=== PATIENT | female | born 1955 | race Caucasian/White ===

== ENCOUNTER 2020-06-30 11:42 | Outpatient (CLI) | payer MEDICARE, SELFPAY ==
--- NOTE | ~2020-06-30 | MM_ITS ---
EXAMINATION: MM screening [facility] BI w meche HISTORY: Screening mammogram, history of right breast cancer TECHNIQUE: Craniocaudal and mediolateral oblique 3-D tomosynthesis images were obtained and synthetic 2-D images were generated. CAD analysis was submitted and interpreted. COMPARISON: 06/11/2019, 06/06/2018, 05/17/2017, 09/14/2015 BREAST PARENCHYMAL COMPOSITION: There are scattered areas of fibroglandular density. FINDINGS: Stable lumpectomy changes are present in the central right breast. There is no evidence of suspicious mass, calcification, or architectural distortion to suggest malignancy in either breast. T here has been no suspicious interval change. IMPRESSION: 1. No mammographic evidence of malignancy. 2. Recommend routine screening mammography in one year. BI-RADS Category 2: Benign finding(s). Reviewed, dictated and finalized at location A.
== END 2020-06-30 11:43 | disposition home or self-care (01) ==
PROVIDERS: PCP Internal Medicine; Visit Provider Internal Medicine
DX: Z12.31 Encounter for screening mammogram for malignant neoplasm of breast (principal)
CPT/HCPCS: 77063; 77067

== ENCOUNTER 2021-05-31 11:56 | Outpatient (CLI) | payer MEDICARE, SELFPAY ==
--- NOTE | 2021-05-31 13:02 | ECG_ITS ---
Measurements Intervals [place] Rate: 63 P: -2 GA: 160 QRS: -24 QRSD: 90 T: 29 QT: 387 QTc: 397 Interpretive Statements SINUS RHYTHM WITH SINUS ARRHYTHMIA INCOMPLETE RIGHT BUNDLE BRANCH BLOCK LOW QRS VOLTAGE IN PRECORDIAL LEADS POOR R WAVE PROGRESSION, ANTERIOR LEADS BORDERLINE T WAVE ABNORMALITY- ANTERIOR LEADS BASELINE ARTIFACT- I, II, III, AVR, AVL, AVF BORDERLINE ECG Electronically Signed On 05-31-2021 13:15:40 CDT by Bryn Jameson D.O.
[2021-05-31 14:21] LABS: Basophils Percent Auto 0.4 % (0.2-1.2); Eosinophils Absolute Auto 0.1 K/mm3 (0-0.3); Eosinophils Percent Auto 2.8 % (0-4.4); Hematocrit 41.9 % (37.0-47.0); Hemoglobin 13.9 g/dL (12.0-15.0); Immature Granulocyte Absolute 0.01 K/mm3 (0.00-0.031); Immature Granulocyte Percent A 0.2 % (0-0.5); Lymphocytes Absolute Auto 1.03 K/mm3 (0.9-3.2); Lymphocytes Percent Auto 21.8 % (18.3-44.2); Mean Corpuscular HGB Conc 33.2 g/dl (32-36); Mean Corpuscular Hemoglobin 29.8 pg (26-34); Mean Corpuscular Volume 89.7 fl (80-100); Mean Platelet Volume 10.6 fl (7.4-10.4); Monocytes Absolute Auto 0.4 K/mm3 (0.1-0.6); Monocytes Percent Auto 8.1 % (2.6-8.5); Neutrophils Absolute Auto 3.2 K/mm3 (1.3-6.7); Neutrophils Percent Auto 66.7 % (45.5-73.1); Platelet Count Result 235 k/mm3 (150-375); Red Blood Count 4.67 M/mm3 (4.2-5.4); Red Cell Distribution Width 11.9 % (11.5-14.5); White Blood Count 4.7 K/mm3 (4.5-10.0)
[2021-05-31 14:29] LABS: Albumin Level 4.3 g/dL (3.5-5.1); Estimated Glomerular Filt Rate > 60; Glucose 83 mg/dL (65-110); Urine Cotinine NEGATIVE
[2021-05-31 14:32] LABS: Hemoglobin A1C 5.2 % (<5.7)
== END 2021-05-31 11:57 | disposition home or self-care (01) ==
PROVIDERS: PCP Internal Medicine; Visit Provider Orthopaedic Surgery
DX: M17.11 Unilateral primary osteoarthritis, right knee (principal); Z01.818 Encounter for other preprocedural examination; I45.10 Unspecified right bundle-branch block
CPT/HCPCS: 80307; 82040; 82565; 82947; 83036; 85025; 93005

== ENCOUNTER 2021-06-15 02:05 | Day surgery (SDC) | payer MEDICARE, SELFPAY ==
[2021-05-31 12:24] VITALS: BP 137/78; PULSE 72; RESP 16; TEMP 36.7; O2SAT 98; BMI 26.8
--- NOTE | 2021-06-13 13:15 | PM.IMHP ---
H&P: HPI History of Present Illness Date/Time: 06/13/21 13:15 the patient is a 65-year-old female who presents with right knee pain. This is due to primary osteoarthritis advanced in nature. By previous x-ray the patient is noted to have [id number] primary osteoarthritis with tricompartmental changes in the right knee. Patient can not stand or walk for long periods she has aching pain worse with activities and relieved by rest. She can not squat kneel go up and down stairs well has start-up pain rest pain and night pain. The patient reports mechanical symptoms with swelling as well. Despite conservative measures including cortisone therapy and anti-inflammatories symptoms continue. At this point the patient has discussed further treatment options in detail Dr. Logan she would now like to proceed with a right total knee arthroplasty. Chief Complaint: Right knee pain due to advanced primary osteoarthritis Review of Systems Review of Systems: All systems reviewed & are unremarkable except as noted in HPI and below PMFSH Family History Family History Father Family history of lung cancer Family history of heart disease in male family member before age 55 Mother Family history of lupus erythematosus Family history of heart disease in male family member before age 55 Other Diabetes mellitus Family history of cardiovascular disease Social History Social History Smoking status: Never smoker Alcohol intake: current Substance use: never Additional living arrangements comments: HUSB Spiritual care concerns: No Meds Home Medications and Allergies Home Medications Medication Instructions Recorded Confirmed Type cholecalciferol (vitamin D3) 25 mcg PO DAILY 05/31/21 05/31/21 History losartan 50 mg PO QAM 05/31/21 05/31/21 History paroxetine HCl 20 mg PO QAM 05/31/21 05/31/21 History pediatric multivitamin [Multiple 1 tablet PO DAILY 05/31/21 05/31/21 History Vitamins] Allergies Allergy/AdvReac Type Severity Reaction Status Date / Time Sulfa (Sulfonamide Allergy Severe RENAL, Verified 05/31/21 12:16 Antibiotics) HEART & RESP FAILURE, HIVES trimethoprim Allergy Severe RENAL,HEART Verified 05/31/21 12:16 & RESP FAILURE, HIVES Exam Narrative: The patient is noted be a well-developed well-nourished female no acute distress she is alert oriented x3. Normal mood and affect. She is noted be 5 ft 8 in tall 173 lb with a BMI of 26.1. Hearing and vision are intact. Respiratory is good no distress. Pulse regular rate rhythm. Abdomen benign. Extremities showed the patient's right knee to be painful with manipulation and range of motion. Patient has tenderness on the medial joint line somewhat laterally as well pain with extremes of motion right knee. Subpatellar crepitation is noted mild effusion swelling, hips move well with negative Stinchfield negative SILVIO. Strength is 5 5 neurovascular patient is intact patient has pain with extremes of motion somewhat limited motion as well in the right knee. patient walks an antalgic gait because right knee pain. Neurovascular patient is intact. Skin is intact. Central nervous system exam within normal limits. Assessment and Plan Additional Plan By x-ray and exam the patient is noted to have severe primary osteoarthritis right knee joint. The patient has discussed risks benefits limitations and alternatives to surgery in great detail Dr. Logan, the patient is now ready to proceed with a right total knee arthroplasty. The patient is scheduled to go surgery 06/15/20[facility] at [facility] [address]. Logan. The patient voiced understanding and agrees with the above plan.
[2021-06-15] VITALS (14 sets, daily range): BP systolic 114–182; BP diastolic 49–85; PULSE 64–94; RESP 12–20; TEMP 36.1–36.8; O2SAT 93–100
--- NOTE | ~2021-06-15 | XR_ITS ---
EXAMINATION: XR knee RT 2V DATE: 06/15/2021 11:40 INDICATION: Total right knee arthroplasty. Postop. TECHNIQUE: 2 views of right knee were obtained. COMPARISON: None. FINDINGS: There is a total right knee arthroplasty in near-anatomic alignment with patellar resurfaci ng. No fracture. There is gas in the knee joint and soft tissues, consistent with recent surgery. Ant erior skin kulwant are noted. IMPRESSION: 1. Total right knee arthroplasty in near-anatomic alignment. Reviewed, dictated and finalized at location A.
--- NOTE | 2021-06-15 07:22 | WPDHPUPDATE1 ---
History and Physical Update Update Date/Time: 06/15/21 07:22 History and Physical has been reviewed, including an updated exam of the patient. There are NO changes in the patient's condition. Risks, benefits, and alternatives have been discussed and questions answered. Patient agrees to proceed with procedure.
[2021-06-15] MEDS: ACETAMINOPHEN 500 MG TABLET 1000 MG PO (07:40)
[2021-06-15] MEDS: LACTATED RINGERS 1,000 ML 30 ML IV CONT ×2 (07:50→11:23)
[2021-06-15] MEDS: TRANEXAMIC ACID 1,000MG/ISO100 1,000 MG/100 ML BAG 200 MG IVPB (07:54)
--- NOTE | 2021-06-15 08:55 | WPDANESEPPF ---
Anes - Initial Pre Proc Eval Procedure: Operation Date: 06/15/21 09:30 Proposed Procedures p Right Total Knee Arthroplasty - Miguelangel Logan MD Date/Time: 06/15/21 08:55 Surgeon: Miguelangel Logan MD Pre Op Diagnosis: OA right knee Patient Data Age: 65 Gender: F Height: 1.73 m Weight: 78.4 kg Last Vital Signs Temp 36.2 C L 06/15/21 07:45 Pulse 79 06/15/21 07:45 Resp 16 06/15/21 07:45 BP 128/72 06/15/21 07:45 Pulse Ox 97 06/15/21 07:45 Allergies Allergy/AdvReac Type Severity Reaction Status Date / Time Sulfa (Sulfonamide Allergy Severe RENAL, Verified 06/15/21 08:04 Antibiotics) HEART & RESP FAILURE, HIVES trimethoprim Allergy Severe RENAL,HEART Verified 06/15/21 08:04 & RESP FAILURE, HIVES Home Medications Medication Instructions Recorded Confirmed Type cholecalciferol (vitamin D3) 25 mcg PO DAILY 05/31/21 06/15/21 History losartan 50 mg PO QAM 05/31/21 06/15/21 History paroxetine HCl 20 mg PO QAM 05/31/21 06/15/21 History pediatric multivitamin [Multiple 1 tablet PO DAILY 05/31/21 06/15/21 History Vitamins] Patient hx anesthesia problems: none Family hx anesthesia problems: none PMFSH Past Medical History Medical History (Updated 06/14/21 @ 17:08 by Abhinav Zamarripa DO) Atrial fibrillation resolved - one occurrence 2009 following sepsis s/p breast sx History of breast cancer History of rectal cancer Hypertension PONV (postoperative nausea and vomiting) Surgical History Surgical History (Updated 06/14/21 @ 17:08 by Abhinav Zamarripa DO) History of appendectomy History of History of hysterectomy Family History Family History Father Family history of lung cancer Family history of heart disease in male family member before age 55 Mother Family history of lupus erythematosus Family history of heart disease in male family member before age 55 Other Diabetes mellitus Family history of cardiovascular disease Social History Social History Smoking status: Never smoker Alcohol intake: current Substance use: never Living arrangements: with family Additional living arrangements comments: HUSB Spiritual care concerns: No Anes - Eval Final PreProcedure Day of Procedure 06/15/21 08:55 Patient weight: overweight Heart: regular rate and rhythm Lungs: clear to auscultation and normal air movement Airway: Mallampati scale class II Neurological: alert and oriented Last oral intake: >/= 8 hours ASA classification: III Emergent: no Anesthetic plan: proceed Anesthesia type and monitoring: general LMA and standard monitoring Informed Consent: The patient's anesthetic plan and its attendant risks and benefits were discussed with the patient/family/POA. Questions were solicited and answers provided to the satisfaction of the patient/family/POA.
--- NOTE | 2021-06-15 09:11 | WPDANESPNB ---
Anes - Peripheral Nerve Block Date/Time: 06/15/21 09:11 I have discussed with the patient/family/POA the placement of a peripheral nerve block for post-operative pain management, including associated risks, benefits, complications, and side effects. Alternative methods of post-operative analgesia were detailed. Questions were solicited and answers provided to the satisfaction of the patient/family/POA. Time-Out: A pre-procedural Time-Out was completed immediately before starting the procedure and confirmed: Patient Identification, Site, Procedure, Patient Position and the Availability of Requisite Equipment. Clinical Indications: Acute post-operative pain management requested by the operative surgeon. Nerve Block Insertion Note Anes-nerve block: adductor canal right Patient position: supine Skin prep: chlorhexidine Needle: 22 gauge, stimulating, insulated echogenic needle. Needle length: 80 mm Technique: ultrasound Injectate: bupivacaine 0.5% with epi 5 mcg/ml (30cc - no epi) Observations: tolerated well Complications: none Procedure start time:: 906 Procedure end time:: 909
[2021-06-15] MEDS: SCOPOLAMINE 1.5 MG PATCH TRANSDERM (09:20)
[2021-06-15] MEDS: ceFAZolin 2 GM/D5W 50 ML 2 GM/50 ML BAG IVPB (09:39)
[2021-06-15] MEDS: GENTAMICIN BONE CEMENT REFOBACIN 1 EACH TOPICAL (10:30)
--- NOTE | 2021-06-15 10:50 | W.PM.PROC2 ---
Procedure Note - Detailed Date of Procedure 06/15/21 Pre-op Diagnosis OA right knee Post-op Diagnosis same Procedure Performed [side] total knee arthroplasty Surgeon Miguelangel Logan MD [employer] Clarence Godinez Anesthesia general Description of Procedure The patient was brought to the operating room. General anesthetic was administered. Placed on the operating table and sterilely prepped and draped in usual manner. A longitudinal incision was made. Tourniquet inflated to 300 mmHg for a total of [time] minutes. Dissection carried down to the fascia. Medial parapatellar incision was made and the patella subluxated laterally. Patella cut from [25] to [15] mm and sized for a [37] mm button. The tibia cut perpendicular to the long axis and femur cut in 7 taking 11mm off degrees of valgus, a [67.5] femur trialed. [71] tibia was felt to fit the best. The soft tissue balanced, hemostasis obtained. All [address], [] tibia, [67.5] femur, [37] mm patella, and [13AS] mm poly. Motion was 0-125 degrees with good stablility and flexion and extension. The wound was closed with #2 vicryl, 2-0 Vicryl and kulwant. Estimated Blood Loss 200 Drains No Packing No Pathology none sent Complications No immediate complications Condition stable Disposition PACU
[2021-06-15] MEDS: fentaNYL CITRATE INJ (*CRX) 100 MCG/2 ML VIAL 25 MCG IV PUSH ×4 (11:56→12:29)
--- NOTE | 2021-06-15 13:21 | ADMGEN ---
This patient, Beth Hansen, was admitted to Medical Room 241-01. Patient/family oriented to hospital policies and general routines including ID bracelet, bed and alarms, visiting hours, pain management, procedures, bathroom and other care routines, personal items, smoking policy, room service/diet, and visiting hours. Information on how to activate the Rapid Response Team has been discussed. Patient/Family are encouraged to report perceived risks to care and to ask questions if they do not understand what they are told or what they should do.
[2021-06-15] MEDS: HYDROcodone/acetaminophen (*CRX) 7.5-325 MG TABLET 1 TAB PO ×2 (13:38→23:14)
[2021-06-15] MEDS: SODIUM CHLORIDE 0.9% IV 1,000 ML 125 ML IV CONT (13:39)
[2021-06-15] MEDS: DOCUSATE SODIUM 100 MG CAPSULE PO (16:33)
[2021-06-15] MEDS: CELECOXIB 200 MG CAPSULE PO (16:33)
[2021-06-15] MEDS: traMADol HCL (*CRX) 50 MG TABLET PO (17:16)
[2021-06-15] MEDS: RIVAROXABAN 10 MG TABLET PO (21:55)
[2021-06-15] MEDS: HYDROcodone/acetaminophen (*CRX) 5-325 MG TABLET 1 TAB PO (21:55)
[2021-06-15] MEDS: FAMOTIDINE 20 MG TABLET PO (21:56)
[2021-06-16] MEDS: traMADol HCL (*CRX) 50 MG TABLET PO (01:22)
[2021-06-16 02:36] VITALS: BP 125/60; PULSE 72; RESP 18; TEMP 36.4; O2SAT 96
[2021-06-16 05:40] LABS: Basophils Percent Auto 0.1 % (0.2-1.2); Eosinophils Percent Auto 0.3 % (0-4.4); Hematocrit 30.2 % (37.0-47.0); Hemoglobin 10.3 g/dL (12.0-15.0); Immature Granulocyte Absolute 0.02 K/mm3 (0.00-0.031); Immature Granulocyte Percent A 0.3 % (0-0.5); Lymphocytes Absolute Auto 1.13 K/mm3 (0.9-3.2); Lymphocytes Percent Auto 14.4 % (18.3-44.2); Mean Corpuscular HGB Conc 34.1 g/dl (32-36); Mean Corpuscular Hemoglobin 30.2 pg (26-34); Mean Corpuscular Volume 88.6 fl (80-100); Mean Platelet Volume 10.4 fl (7.4-10.4); Monocytes Absolute Auto 0.7 K/mm3 (0.1-0.6); Monocytes Percent Auto 9.3 % (2.6-8.5); Neutrophils Percent Auto 75.6 % (45.5-73.1); Platelet Count Result 217 k/mm3 (150-375); Red Blood Count 3.41 M/mm3 (4.2-5.4); Red Cell Distribution Width 12.3 % (11.5-14.5); White Blood Count 7.9 K/mm3 (4.5-10.0)
[2021-06-16 05:52] LABS: Anion Gap 6 mmol/L (8-16); Blood Urea Nitrogen 12 mg/dL (7-17); Calcium 8.3 mg/dL (8.4-10.2); Carbon Dioxide 26 mmol/L (22-30); Chloride 104 mmol/L (98-107); Estimated CRCL calculation 60 ml/min; Estimated Glomerular Filt Rate > 60; Glucose 95 mg/dL (65-110); Potassium 3.8 mmol/L (3.4-5.0); Sodium 136 mmol/L (137-145)
[2021-06-16 06:00] VITALS: BMI 25.6
[2021-06-16] MEDS: HYDROcodone/acetaminophen (*CRX) 5-325 MG TABLET 1 TAB PO (06:18)
[2021-06-16 06:36] VITALS: BP 130/76; PULSE 79; RESP 20; TEMP 37.1; O2SAT 99
[2021-06-16] MEDS: HYDROcodone/acetaminophen (*CRX) 7.5-325 MG TABLET 1 TAB PO (08:14)
[2021-06-16] MEDS: CELECOXIB 200 MG CAPSULE PO (08:16)
--- NOTE | 2021-06-16 08:40 | PM.IMCN ---
Assessment and Plan Assessment and plan (1) Osteoarthritis, knee: Code(s): M17.10 - Unilateral primary osteoarthritis, unspecified knee Status: Acute Assessment and Plan: Patient status post right total knee arthroplasty. He is completing her 3 doses in Cefazolin. Pain is well controlled. Pain management per ortho. Continue PT and OT. (2) Anemia: Code(s): D64.9 - Anemia, unspecified Status: Acute Assessment and Plan: normal hemoglobin prior to admission. Hemoglobin has dropped to 10.3. Most likely related to acute blood loss from surgery. Continue to monitor. (3) Hypertension: Code(s): I10 - Essential (primary) hypertension Status: Acute Assessment and Plan: Patient's blood pressure was reviewed and is much better controlled now. Continue Losartan. (4) Depression: Code(s): F32.9 - Major depressive disorder, single episode, unspecified Status: Acute Assessment and Plan: Mood is stable. Continue Paxil. (5) DVT prophylaxis: Code(s): Z29.9 - Encounter for prophylactic measures, unspecified Status: Acute Assessment and Plan: Xarelto started. Additional Plan Thank you so much for allowing me to a part of this patient's care. Will continue to follow along with you. HPI Data of Consult Consult date: 06/16/21 Requesting Physician: Miguelangel Logan MD Primary Care Provider: Grayson Karimi, Consult Narrative Reason for consult: Medical management Narrative: Beth Hansen is a 65 year old female with hx of HTN, breast cancer and rectal cancer here for elective right TKA. Patient had a right knee meniscus 'scrapping' in 2009 associated with a fall injury. Right knee pain bega around 3-4 years agoa and has progressively worsened. Right leg would lock if sitting or standing for prolonged periods. Right knee pain effecting her gait. Has trouble descending stairs. Did try cortison injections but transient beenfit. She was evaluated by orthopedics who determined that patietn failed medical therapy and she was admitted for elective Right TKA. 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 During that time, she also required a 'shock' to her heart but details are vague (she did not know if she had AFib). Patient was admitted and underwent right TKA on 06/15/21. She toelrated the procedure well. She has no pain at rest but some discomfort when ambulating to the bathroom. She feels well today. Complete ROS was negative. Review of Systems Review of Systems: All systems reviewed & are unremarkable except as noted in HPI and below PMFSH Past Medical History Medical History (Updated 06/16/21 @ 08:57 by Jone Marcial MD) Atrial fibrillation resolved - one occurrence 2009 following sepsis s/p breast sx Depression History of breast cancer Lumpectomy with XRT and chemo in 2009 History of rectal cancer s/p XRT, surgery and chemo Hypertension Osteoarthritis, knee PONV (postoperative nausea and vomiting) Sweet syndrome Surgical History Surgical History (Updated 06/16/21 @ 08:57 by Jone Marcial MD) History of appendectomy History of History of hysterectomy NEPTALI/BSO. During the colon resection. History of partial colectomy in 1999; partial colon resection with ostomy that was reversed 9 months later History of total right knee replacement (TKR) Hx of knee surgery right meniscus 2009 Family History Family History (Updated 06/15/21 @ 13:30 by Nanda Salinas RN) Father Family history of lung cancer Mother Family history of heart disease in male family member before age 55 Family history of lupus erythematosus Family history of cardiovascular disease Sibling Family history of cardiovascular disease Sibling Family history of cardiovascular disease S
[2021-06-16] MEDS: LOSARTAN POTASSIUM 50 MG TABLET PO (09:41)
[2021-06-16] MEDS: MULTIVITS W-FE,MIN CHEWABLE TABLET 1 TABLET PO (09:41)
[2021-06-16] MEDS: PARoxetine 20 MG TABLET PO (09:41)
[2021-06-16] MEDS: FAMOTIDINE 20 MG TABLET PO (09:41)
[2021-06-16 10:00] VITALS: BP 106/41; PULSE 87; RESP 16; TEMP 36.7; O2SAT 95
[2021-06-16] MEDS: CHOLECALCIFEROL 1,000 UNITS TABLET 1000 UNITS PO (10:54)
[2021-06-16] MEDS: DOCUSATE SODIUM 100 MG CAPSULE PO (10:54)
[2021-06-16 14:20] VITALS: BP 95/56; PULSE 87; RESP 16; TEMP 36.7; O2SAT 100
--- NOTE | 2021-06-16 15:51 | PM.PNORT ---
Progress Note: A&P Additional Plan Patient is doing well postop day 1 status post total knee arthroplasty. Patient prefers discharge home the patient voiced understanding agrees with the plan please see discharge orders. Subjective Subjective Date/Time Seen: 06/16/21 15:51 Patient is doing well postop day 1 status post total knee arthroplasty. No postoperative complications are noted. Pain is well controlled tolerated physical therapy well. The patient is referred discharged home today. Review of Systems Review of Systems: All systems reviewed & are unremarkable except as noted in HPI and below Exam Narrative: Vital signs are stable patient is afebrile neurovascular patient is intact wound is clean and dry except for minimal bloody serous drainage proximally. Calves are benign. Swelling is well controlled. Patient tolerated physical therapy well up ambulating with a walker weight-bearing as tolerated. Objective Data Vital Signs Vital Signs: Vital Signs - 24 hr 06/15/21 22:00 06/15/21 22:36 06/16/21 02:36 Temperature 36.5 C 36.5 C 36.4 C L Pulse Rate 64 64 72 Respiratory Rate 18 18 18 Blood Pressure 114/49 L 114/49 L 125/60 Pulse Oximetry 97 97 96 06/16/21 06:36 06/16/21 10:00 06/16/21 14:20 Temperature 37.1 C 36.7 C 36.7 C Pulse Rate 79 87 87 Respiratory Rate 20 16 16 Blood Pressure 130/76 106/41 L 95/56 L Pulse Oximetry 99 95 100 Intake/Output Intake/Output: Intake & Output 06/13/21 06/14/21 06/15/21 06/16/21 23:59 23:59 23:59 23:59 Intake Total 2622 1060 Output Total 400 500 Balance 2222 560 Meds/Results Medications: Active Medications Generic Name Dose Route Start Last Admin Trade Name Freq PRN Reason Stop Dose Admin Hydrocodone Bitart/Acetaminophen 1 tab 06/15/21 12:51 06/16/21 06:18 Hydrocodone/Acetaminophen (*Crx) 5-325 Mg Tablet PO 1 tab Q4H PRN Administration Pain Rated 4-6 Hydrocodone Bitart/Acetaminophen 1 tab 06/15/21 12:51 06/16/21 08:14 Hydrocodone/Acetaminophen (*Crx) 7.5-325 Mg Tablet PO 1 tab Q6H PRN Administration Pain Rated 7-10 Celecoxib 200 mg 06/15/21 17:00 06/16/21 08:16 Celecoxib 200 Mg Capsule PO 200 mg BIDWM SHALINI Administration Cyclobenzaprine HCl 10 mg 06/15/21 12:51 Cyclobenzaprine Hcl 10 Mg Tablet PO Q8H PRN Spasms Docusate Sodium 100 mg 06/15/21 17:00 06/16/21 10:54 Docusate Sodium 100 Mg Capsule PO 100 mg BID SHALINI Administration Famotidine 20 mg 06/15/21 21:00 06/16/21 09:41 Famotidine 20 Mg Tablet PO 20 mg Q12HR SHALINI Administration Losartan Potassium 50 mg 06/16/21 09:00 06/16/21 09:41 Losartan Potassium 50 Mg Tablet PO 50 mg QAM SHALINI Administration Multivitamins/Minerals 1 tablet 06/16/21 09:00 06/16/21 09:41 Multivits W-Fe,Min Chewable Tablet PO 1 tablet DAILY SHALINI Administration Naloxone HCl 0.1 mg 06/15/21 12:51 Naloxone Hcl 0.4 Mg/Ml Vial IV PUSH Q2M PRN Opiate Reversal Paroxetine HCl 20 mg 06/16/21 09:00 06/16/21 09:41 Paroxetine 20 Mg Tablet PO 20 mg QAM SHALINI Administration Rivaroxaban 10 mg 06/15/21 21:00 06/15/21 21:55 Rivaroxaban 10 Mg Tablet PO 06/26/21 17:01 10 mg DAILY@17 SHALINI Administration Tramadol HCl 50 mg 06/15/21 12:51 06/16/21 01:22 Tramadol Hcl (*Crx) 50 Mg Tablet PO 50 mg Q4H PRN Administration Pain Rated 1-3 Vitamin D 1,000 units 06/16/21 09:00 06/16/21 10:54 Cholecalciferol 1,000 Units Tablet PO 1,000 units DAILY SHALINI Administration Radiology Results: ITS Impressions Knee X-Ray 06/15/21 11:47 IMPRESSION: 1. Total right knee arthroplasty in near-anatomic alignment. Labs Labs: Laboratory Results - last 24 hr 06/16/21 06/16/21 05:05 05:05 WBC 7.9 RBC 3.41 L Hgb 10.3 L D Hct 30.2 L MCV 88.6 MCH 30.2 MCHC 34.1 RDW 12.3 Plt Count 217 MPV 10.4 Immature Gran % (Auto) 0.3 Neut % (Auto) 75.6 H Lymph % (Aut
--- NOTE | 2021-06-16 16:03 | PM.DS ---
DS: Admitting Diagnosis Admitting Diagnosis advanced primary osteoarthritis right knee joint discharge diagnosis advanced primary osteoarthritis right knee joint status post right total knee arthroplasty. DS: Summary Hospital Course Hospital Course: Patient underwent right total knee arthroplasty performed by Dr. Logan on June 15, 2021. Postop day 1 the patient was doing well no postoperative complaints or problems pain is well controlled tolerated therapy well. Patient was deemed stable for discharge home, vital signs stable afebrile. Patient voiced understanding and agreed to above plan. Will follow-up as outpatient 2 weeks postop see discharge orders. Time Spent with Patient Time attestation: Total time spent providing and/or coordinating discharge services: Exam Narrative: Well-developed well-nourished female no acute distress postop day 1 vital signs are stable afebrile neurovascularly she is intact wound is clean and dry calves are benign ambulating well with therapy weight-bearing as tolerated. Patient is alert oriented x3 pain is well controlled. DS: Data Data Completed and Pending Labs on day of discharge: Labs from last 24 hours 06/16/21 06/16/21 05:05 05:05 WBC 7.9 RBC 3.41 L Hgb 10.3 L D Hct 30.2 L MCV 88.6 MCH 30.2 MCHC 34.1 RDW 12.3 Plt Count 217 MPV 10.4 Immature Gran % (Auto) 0.3 Neut % (Auto) 75.6 H Lymph % (Auto) 14.4 L [place] % (Auto) 9.3 H Eos % (Auto) 0.3 Baso % (Auto) 0.1 L Lymph # (Auto) 1.13 [place] # (Auto) 0.7 H Eos # (Auto) 0.0 Baso # (Auto) 0.0 Abs Immat Gran (auto) 0.02 Absolute Neuts (auto) 6.0 Absolute Nucleated RBC 0.0 Nucleated RBC % 0.0 Sodium 136 L Potassium 3.8 Chloride 104 Carbon Dioxide 26 Anion Gap 6 L BUN 12 Creatinine 0.80 Estim Creat Clear Calc 60 Estimated GFR > 60 Glucose 95 Calcium 8.3 L Discharge Plan Discharge Patient Disposition: Home, Self-Care Discharge Instructions: discharged home general diet. Activity as tolerated weightbearing as tolerated right lower extremity with a walker. Physical therapy as an outpatient for total knee protocol patient is to do outpatient therapy at home every day as well. Keep the wound clean and dry change dressing daily. Discharge with [place] 7.5 mg 1 tablet p.o. q.4 hours p.r.n. severe pain. Xarelto 10 mg daily for total postop course of 2 weeks when this is complete the patient will take aspirin 325 mg b.i.d. x1 month then discontinue. Patient will follow-up 2 weeks for postop for staple removal and wound recheck, the patient is to call [phone] for any problems difficulties or questions. Patient Instructions: Rivaroxaban (By mouth) Stand Alone Forms: Avoid NSAIDs, General Discharge Instructions Follow-up/Referrals: Miguelangel Logan MD [Physician] - Discharge Medications: New hydrocodone-acetaminophen 7.5-325 mg Tablet 1 tablet PO Q4-6H PRN (Reason: Pain Rated 7-10) Qty: 50 RF: 0 Xarelto 10 mg Tablet 10 mg PO DAILY@17 Qty: 13 RF: 0 Continued losartan 50 mg tablet 50 mg PO QAM RF: 0 pediatric multivitamin Tablet,Chewable 1 tablet PO DAILY RF: 0 paroxetine HCl 20 mg tablet 20 mg PO QAM RF: 0 cholecalciferol (vitamin D3) 25 mcg (1,000 unit) Capsule 25 mcg PO DAILY RF: 0
== END 2021-06-16 17:00 | disposition home or self-care (01) ==
LOC: ANHSURGERY 07:26 → ANH2MED 13:08
PROVIDERS: PCP Internal Medicine; Visit Provider Orthopaedic Surgery
PROC: (CPT 27447; principal; 2021-06-15 09:30)
DX: M17.11 Unilateral primary osteoarthritis, right knee (principal); G89.18 Other acute postprocedural pain; I10 Essential (primary) hypertension; D64.9 Anemia, unspecified; F32.9 Major depressive disorder, single episode, unspecified; Z85.3 Personal history of malignant neoplasm of breast; Z85.048 Personal history of other malignant neoplasm of rectum, rectosigmoid junction, and anus
CPT/HCPCS: 27447; 64447; 36415; 73560; 80048; 80307; 82040; 82565; 82947; 83036; 85025; 86850; 86900; 86901; 93005; 97110; 97116; 97161; 97165; 97530; 97535; A9270; C1713; C1776; J0171; J0690; J1885; J2250; J2270; J2795; J3010; J3370; J7030; J7120

== ENCOUNTER 2021-06-23 13:59 | Outpatient (CLI) | payer MEDICARE, SELFPAY ==
--- NOTE | ~2021-06-23 | US_ITS ---
EXAMINATION: US venous doppler LE RT DATE: 06/23/2021 14:35 INDICATION: Right lower limb pain and swelling TECHNIQUE: Grayscale ultrasound images without and with compression and Doppler ultrasound images of the right lower extremity veins were obtained. COMPARISON: None. FINDINGS: The visualized portions of right common femoral vein, profunda (deep) femoral vein, femoral vein, pop liteal vein, peroneal trunk, posterior tibial veins, peroneal veins, gastrocnemius vein and greater s aphenous vein outflow are patent. IMPRESSION: 1. No deep venous thrombosis in the right lower limb. Reviewed, dictated and finalized at location A.
== END 2021-06-23 14:00 | disposition home or self-care (01) ==
PROVIDERS: PCP Internal Medicine; Visit Provider Orthopaedic Surgery
DX: M79.661 Pain in right lower leg (principal)
CPT/HCPCS: 93971

== ENCOUNTER 2021-07-21 16:14 | Outpatient (CLI) | payer MEDICARE, SELFPAY ==
--- NOTE | ~2021-07-21 | MM_ITS ---
EXAMINATION: MM screening [facility] BI w meche HISTORY: Screening TECHNIQUE: Craniocaudal and mediolateral oblique 3-D tomosynthesis images were obtained and synthetic 2-D images were generated. CAD analysis was submitted and interpreted. COMPARISON: Comparison to multiple prior studies sequentially, with oldest reviewed study dated 08/07. BREAST PARENCHYMAL COMPOSITION: There are scattered areas of fibroglandular density. FINDINGS: There are surgical changes in the right breast consistent with previous lumpectomy. There a re developing dystrophic calcifications at the surgical site, consistent with fat necrosis. There is no evidence of suspicious mass, calcification, or architectural distortion to suggest malignancy in e ither breast. There has been no suspicious interval change. IMPRESSION: 1. No mammographic evidence of malignancy. 2. Recommend routine screening mammography in one year. BI-RADS Category 2: Benign finding(s). Reviewed, dictated and finalized at location A.
== END 2021-07-21 16:15 | disposition home or self-care (01) ==
PROVIDERS: PCP Internal Medicine; Visit Provider Obstetrics & Gynecology Gynecology
DX: Z12.31 Encounter for screening mammogram for malignant neoplasm of breast (principal)
CPT/HCPCS: 77063; 77067

== ENCOUNTER 2021-07-26 15:16 | Outpatient (CLI) | payer MEDICARE, SELFPAY ==
--- NOTE | ~2021-07-26 | US_ITS ---
EXAMINATION:US venous doppler LE RT INDICATION:Right leg pain and swelling. TECHNIQUE: Multiple grayscale, color flow and Doppler images of the right lower extremity deep venous systems were obtained and reviewed. COMPARISON:No prior studies for comparison. FINDINGS: The common femoral, superficial femoral and popliteal veins demonstrate normal respiratory variation, augmentation and compressibility. Color flow is also seen within the posterior tibial, pe roneal, greater saphenous and profunda veins. IMPRESSION: 1: No lower extremity deep venous thrombosis. Reviewed, dictated and finalized at location A.
== END 2021-07-26 15:17 | disposition home or self-care (01) ==
LOC: ANHIMG 15:21
PROVIDERS: PCP Internal Medicine; Visit Provider Orthopaedic Surgery
DX: M79.89 Other specified soft tissue disorders (principal)
CPT/HCPCS: 93971

== ENCOUNTER 2022-09-18 09:44 | Outpatient (CLI) | payer MEDICARE, SELFPAY ==
--- NOTE | ~2022-09-18 | DEXA_ITS ---
Bone Density Report Name: ANDREW LUGO Age: 66 Sex: Female Ethnicity: White Date of : 1955 Indication: postmenopausal; screening for osteoporosis; height loss; cancer; hysterectomy; Referring Provider: JUAN, DANIEL Study: Bone densitometry was performed. Exam Date: September 18, 2022 Accession number: [id number] Bone Density: Region BMD T-score Z-score Classification AP Spine(L1-L4) 0.873 -1.6 0.4 Osteopenia Femoral Neck (Left) 0.698 -1.4 0.4 Osteopenia Total Hip (Left) 0.860 -0.7 0.8 Normal Femoral Neck (Right) 0.625 -2.0 -0.3 Osteopenia Total Hip (Right) 0.796 -1.2 0.2 Osteopenia Total Hip Mean 0.828 -1.0 0.5 Normal World Health Organization criteria for BMD impression classify patients as: Normal (T-score at or above -1.0), Osteopenia (T-score between -1.0 and -2.5), or Osteoporosis (T-score at or below -2.5). 10-year Fracture Risk(1): Major Osteoporotic Fracture 11% Hip Fracture 1.9% Reported Risk Factors: [place] (), Neck BMD=0.625, BMI=29.1 (1) FRAX(R) Version 3.08. Fracture probability calculated for an untreated patient. Fracture probability may be lower if the patient has received treatment. Clinical Information Provided by Patient: Has used the following medications: Vitamin D, Calcium Has the following medical conditions: Cancer, Hysterectomy Patient maximum height was 68 Menopause Age: 53 No regular weight bearing exercise Drinks caffeinated beverages Onset of menses at age 10 Number of children 2 Impression: The patient has low bone mass, based on the Right Femoral Neck T-score. The patient has an estimated ten-year risk of hip fracture of 1.9% and an estimated ten-year risk of major fracture of 11%, based on the WHO FRAX algorithm. Discussion: BONE DENSITY IS LOW AT ONE OR MORE SKELETAL SITES. This patient's lowest T-score is low at one or more skeletal sites. It meets the World Health Organization's (WHO) criteria for ?low bone mass? (T-score between -1.0 and -2.5). The patient's 10-year risk of fracture as calculated by FRAX is less than the threshold where pharmacological therapy is recommended by the National Osteoporosis Foundation (NOF). However, all treatment decisions require clinical judgment and consideration of individual patient factors, including patient preferences, comorbidities, previous drug use, risk factors not captured in the FRAX model (e.g., frailty, falls, vitamin D deficiency, increased bone turnover, interval significant decline in bone density) and possible under or overestimation of fracture risk by FRAX. The patient should follow a healthful lifestyle (good nutrition with adequate calcium and vitamin D, and appropriate weight-bearing exercise). Follow-Up: Consider repeating this study in 2 to 3 years to
--- NOTE | ~2022-09-18 | MM_ITS ---
EXAMINATION: MM screening [facility] BI w meche HISTORY: Screening TECHNIQUE: Craniocaudal and mediolateral oblique 3-D tomosynthesis images were obtained and synthetic 2-D images were generated. CAD analysis was submitted and interpreted. COMPARISON: Comparison to multiple prior studies sequentially, with oldest reviewed study dated 09/05. BREAST PARENCHYMAL COMPOSITION: There are scattered areas of fibroglandular density. FINDINGS: There are stable lumpectomy changes in the right breast. There is no evidence of suspicious mass, calcification, or architectural distortion to suggest malignancy in either breast. There has b een no suspicious interval change. IMPRESSION: 1. No mammographic evidence of malignancy. 2. Recommend routine screening mammography in one year. BI-RADS Category 1: Negative Reviewed, dictated and finalized at location A. RT COOLER
== END 2022-09-18 09:45 | disposition home or self-care (01) ==
PROVIDERS: PCP Internal Medicine; Visit Provider Nurse Practitioner
DX: Z12.31 Encounter for screening mammogram for malignant neoplasm of breast (principal); Z78.0 Asymptomatic menopausal state; M85.88 Other specified disorders of bone density and structure, other site; M85.852 Other specified disorders of bone density and structure, left thigh; M85.851 Other specified disorders of bone density and structure, right thigh
CPT/HCPCS: 77063; 77067; 77080

== ENCOUNTER 2024-01-02 14:25 | Outpatient (CLI) | payer MEDICARE, SELFPAY ==
--- NOTE | ~2024-01-02 | MM_ITS ---
EXAMINATION: MM screening [facility] BI w [facility] HISTORY: Screening TECHNIQUE: Craniocaudal and mediolateral oblique 3-D tomosynthesis images were obtained and synthetic 2-D images were generated. CAD analysis was submitted and interpreted. COMPARISON: Comparison to multiple prior studies sequentially, with oldest reviewed study dated 05/17. BREAST PARENCHYMAL COMPOSITION: Not dense: There are scattered areas of fibroglandular density. FINDINGS: There is a possible new area of architectural distortion in the outer aspect of the left br east on CC view. The right breast is stable without evidence for malignancy. IMPRESSION: 1. Possible new area of architectural distortion laterally in the left breast. 2. Additional mammographic views and possible breast ultrasound are recommended. BI-RADS Category 0: Incomplete: Needs additional imaging evaluation. Reviewed, dictated and finalized at location A. COORDINATOR IMPRESSION: 1. Possible new area of architectural distortion laterally in the left breast. 2. Additional mammographic views and possible breast ultrasound are recommended . BI-RADS Category 0: Incomplete: Needs additional imaging evaluation.
== END 2024-01-02 14:26 | disposition home or self-care (01) ==
LOC: ANHIMG 14:29
PROVIDERS: PCP Internal Medicine; Visit Provider Internal Medicine
DX: Z12.31 Encounter for screening mammogram for malignant neoplasm of breast (principal); R92.8 Other abnormal and inconclusive findings on diagnostic imaging of breast
CPT/HCPCS: 77063; 77067

== ENCOUNTER 2024-02-18 10:15 | Outpatient (CLI) | payer MEDICARE, SELFPAY ==
--- NOTE | ~2024-02-18 | MMUS_ITS ---
EXAMINATION: US breast LT limited, MM diagnostic [facility] LT w meche HISTORY: Follow-up left breast asymmetry TECHNIQUE: Additional 3-D tomosynthesis images of the left breast were performed and synthetic 2-D im ages were generated. CAD analysis was submitted and interpreted. High resolution Limited left breast ultrasound was performed. COMPARISON: Comparison to multiple prior studies sequentially, with oldest reviewed study dated 12/2017. BREAST PARENCHYMAL COMPOSITION: Not dense: There are scattered areas of fibroglandular density. FINDINGS: MAMMOGRAPHIC FINDINGS: There are no suspicious masses, calcifications or architectural distortion in the left breast to sugg est malignancy. ULTRASOUND: Limited left breast ultrasound: Normal heterogeneous echotexture without focal solid or cystic mass. IMPRESSION: 1. No evidence for malignancy in the left breast. 2. Routine yearly screening mammogram and regular clinical breast examination are recommended. BI-RADS Category 2: Benign finding(s). Reviewed, dictated and finalized at location B. IMPRESSION: 1. No evidence for malignancy in the left breast. 2. Routine yearly screening mammogram and regular clinical breast examination a re recommended. BI-RADS Category 2: Benign finding(s).
== END 2024-02-18 10:16 | disposition home or self-care (01) ==
LOC: ANHIMG 10:16
PROVIDERS: PCP Internal Medicine; Visit Provider Internal Medicine
DX: R92.8 Other abnormal and inconclusive findings on diagnostic imaging of breast (principal)
CPT/HCPCS: 76642; 77061; 77065; G0279

== ENCOUNTER 2024-09-04 10:35 | Outpatient (CLI) | payer MEDICARE, SELFPAY ==
--- NOTE | ~2024-09-04 | US_ITS ---
Right upper quadrant ABDOMINAL ULTRASOUND Ordering provider: Grayson Karimi, History: . RUQ pain . Comparison: None. FINDINGS: LIVER: Normal size and echotexture. No focal hepatic lesions or perihepatic fluid collections are chet ntified. Normal flow of the portal vein. GALLBLADDER: Cholelithiasis. Largest stone near to the neck measures 2 x 1.8 x 2.8 cm. No evidence fo r sludge, gallbladder wall thickening or pericholecystic fluid collections. The wall measures 2 mm. A negative sonographic Sena's sign was noted. BILIARY DUCTS: No evidence for intra or extrahepatic biliary dilation. Common bile duct measures 3.1 mm in diameter which is within normal limits. PANCREAS: Not visualized. UPPER ABDOMINAL AORTA: Normal in caliber. IVC: Patent. FREE FLUID: None. IMPRESSION: Cholelithiasis. No evidence of acute cholecystitis. No definite hepatic masses. Reviewed, dictated and finalized at location A.
== END 2024-09-04 10:36 | disposition home or self-care (01) ==
PROVIDERS: PCP Internal Medicine; Visit Provider Internal Medicine
DX: K80.20 Calculus of gallbladder without cholecystitis without obstruction (principal)
CPT/HCPCS: 76705

== ENCOUNTER 2025-03-23 13:41 | Outpatient (CLI) | payer MEDICARE, SELFPAY ==
--- NOTE | ~2025-03-23 | DEXA_ITS ---
Bone Density Report Name: ANDREW LUGO Age: 69 Sex: Female Ethnicity: White Date of : 1955 Indication: osteopenia; height loss; cancer; hysterectomy; Referring Provider: JUAN, DANIEL Study: Bone densitometry was performed. Exam Date: March 23, 2025 Accession number: [id number] Bone Density: Region BMD T-score Z-score Classification AP Spine(L1-L4) 0.852 -1.8 0.4 Osteopenia Femoral Neck (Left) 0.704 -1.3 0.6 Osteopenia Total Hip (Left) 0.861 -0.7 0.9 Normal Femoral Neck (Right) 0.596 -2.3 -0.4 Osteopenia Total Hip (Right) 0.803 -1.1 0.4 Osteopenia Total Hip Mean 0.832 -0.9 0.7 Normal World Health Organization criteria for BMD impression classify patients as: Normal (T-score at or above -1.0), Osteopenia (T-score between -1.0 and -2.5), or Osteoporosis (T-score at or below -2.5). 10-year Fracture Risk(1): Major Osteoporotic Fracture 13% Hip Fracture 3.1% Reported Risk Factors: [place] (), Neck BMD=0.596, BMI=27.8 (1) FRAX(R) Version 3.08. Fracture probability calculated for an untreated patient. Fracture probability may be lower if the patient has received treatment. Previous Exams: Region Exam Age BMD T-score BMD Change BMD Change Date g/cm2 vs Baseline vs Previous AP Spine (L1-L4) 03/23/2025 69 0.852 -1.8 -0.021 (-2.4%) -0.021 (-2.4%) 09/18/2022 66 0.873 -1.6 Total Hip(Left) 03/23/2025 69 0.861 -0.7 0.000 (0.0%) 0.000 (0.0%) 09/18/2022 66 0.860 -0.7 Total Hip(Right) 03/23/2025 69 0.803 -1.1 0.007 (0.9%) 0.007 (0.9%) 09/18/2022 66 0.796 -1.2 *Denotes significance at 95% confidence level, LSC for AP Spine = 0.022 g/cm2, LSC for Total Hip = 0.027 g/cm2 Clinical Information Provided by Patient: Has used the following medications: Vitamin D, Calcium Has the following medical conditions: Cancer, Hysterectomy Patient maximum height was 68 Menopause Age: 53 No regular weight bearing exercise Drinks caffeinated beverages Onset of menses at age 10 Number of children 2 Impression: The patient has low bone mass, based on the Right Femoral Neck T-score. The patient has an estimated ten-year risk of hip fracture of 3.1% and an estimated ten-year risk of major fracture of 13%, based on the WHO FRAX algorithm. No significant bone loss was observed. Discussion: BONE DENSITY IS LOW AT ONE OR MORE SKELETAL SITES. THE PATIENT'S BMD AND CLINICAL RISK FACTORS CONTRIBUTE TO THIS PATIENT'S INCREASED RISK OF FRACTURE. This patient's lowest T-score is low at one or more skeletal sites. It meets the World Health Organization's (WHO) criteria for “low bone mass” (T-score between -1.0 and -2.5). The patient's 10-year risk of hip fracture as calculated by FRAX exceeds the threshold where pharmacological therapy is recommended by the National Osteoporosis Foundation (NOF). However, all treatment decisions require clinical judgment and consideration of individual patient factors, including patient preferences, comorbidities, previous drug use, risk factors not captured in the FRAX model (e.g., frailty, falls, vitamin D deficiency, increased bone turnover, interval significant decline in bone density) and possible under or overestimation of fracture risk by FRAX. The patient should follow a healthful lifestyle (good nutrition with adequate calcium and vitamin D, and appropriate weight-bearing exercise). Follow-Up: Consider a repeat BMD and Vertebral Fracture Assessment (VFA) exam in 2 years or sooner if medically necessary, to reassess this patient's status. Reported by: OREN on 03/23/2025 2:17:00 PM. Reviewed, dictated and finalized at location A.
--- OUTSIDE RECORDS SUMMARY | 2025-03-23 13:49 | XMS_ITS | Encounter Summary ---
Author Organization [facility] Address [facility] [place] [address] Care Team Providers Care Park Manager Name Role Phone Grayson Karimi MD Primary Care Provider [phone] Encounter Details Date Type Department Care Team (Late st Contact Info) Description 10/03/2020 Prep for Procedure [facility] [place], [place] [id number] Kalpesh Ortiz MD 3 [facility] [address] [place], [place] [id number] Social History Tobacco Use Types Packs/Day Years Used Date Smoking Tobacco: Never Smokeless Tobacco: Never Alcohol Use Standard Drinks/Week Comments Never 0 (1 standard drink = 0.6 oz pur e alcohol) AUDIT-C Answer Date Recorded Q1: How often do you have a drink containing alc ohol? Never 09/28/2020 Average Number of Drinks Not on file 020 Frequency of Binge Drinking Not on file 09/06 Comments Unknown Sex and Gender Information Value Date Recorded Sex Assigned at Not on file Legal Sex Female 7:10 PM CDT Gender Identity Not on file Sexual Orientation Not on file COVID-19 Exposure Response Date Recorded In the last month, have you been in contact with someone who was confirmed or suspected to have Coronavirus / COVID-19? No / Unsure 10/06/2020 6:59 AM SEMICONDUCTOR WAFERS ETCH OPERATOR documented as of this encounter Plan of Treatment Not on file documented as of this encounter Results * PRE-SURGICAL/PRE-PROCEDURE CORONAVIRUS (COVID 19) (10/03/2020 10:35 AM SEMICONDUCTOR WAFERS ETCH OPERATOR) CORONAVIRUS SARS COV 2 PCR (RESP) NOT DETECTED NOT DETECTED 10/04/2020 11:32 AM SEMICONDUCTOR WAFERS ETCH OPERATOR [facility] Comment: A Not Detected (negative) test result for this test means that SARS- CoV-2 RNA was not present in the specimen above the limit of detection. A negative result does not rule out the possibility of COVID-19 and should not be used as the sole basis for treatment or patient management decisions. If COVID-19 is still suspected, based on exposure history together with other clinical findings, re-testing should be considered in consultation with public health authorities. Laboratory test results should always be considered in the context of clinical observations and epidemiological data in making a final diagnosis and patient management decisions. Please review the Fact Sheets and FDA authorized labeling available for health care providers and patients using the following websites: https://[email or web address].[email or web address]/Covid-19/HCP/QuestIVD/fact- sheet.html https://[email or web address].[email or web address]/home/Covid-19/Patients/ QuestIVD/fact-sheet.html This test has been authorized by the FDA under an Emergency Use Authorization (EUA) for use by authorized laboratories. Due to the current public health emergency, [facility] is receiving a high volume of samples from a wide variety of swabs and media for COVID-19 testing. In order to serve patients during this public health crisis, samples from appropriate clinical sources are being tested. Negative test results derived from specimens received in non-commercially manufactured viral collection and transport media, or in media and sample collection kits not yet authorized by FDA for COVID-19 testing should be cautiously evaluated and the patient potentially subjected to extra precautions such as additional clinical monitoring, including collection of an additional specimen. Methodology: Nucleic Acid Amplification Test (NAAT) includes RT-PCR or TMA Additional information about COVID-19 can be found at the [facility] website: [email or web address]/Covid19. Test performed at [facility] [place] [address] [place] [address] Director: AMAIRANI AMAYA DO,MPH FIRST TEST YES 10/03/2020 12:38 PM SEMICONDUCTOR WAFERS ETCH OPERATOR [facility] EMPLOYED IN HEALTHCARE NO 10/03/2020 12:38 PM SEMICONDUCTOR WAFERS ETCH OPERATOR [facility] SYMPTOMATIC DEFINED BY CDC NO 10/03/2020 12:38 PM SEMICONDUCTOR WAFERS ETCH OPERATOR [facility] DATE OF SYMPTOM ONSET NO 10/03/2020 12:49 PM SEMICONDUCTOR WAFERS ETCH OPERATOR [facility] HOSPITALIZATION STATUS NO 10/03/2020 12:38 PM SEMICONDUCTOR WAFERS ETCH OPERATOR [facility] PATIENT IN ICU NO 10/03/2020 12:38 PM SEMICONDUCTOR WAFERS ETCH OPERATOR [facility] RESIDENT OF [facility] UNKNOWN 10/03/2020 12:38 PM SEMICONDUCTOR WAFERS ETCH OPERATOR [facility] NOT 10/03/2020 12:49 PM SEMICONDUCTOR WAFERS ETCH OPERATOR [facility] PATIENT'S RACE WHITE OR 10/03/2020 12:38 PM SEMICONDUCTOR WAFERS ETCH OPERATOR [facility] ETHNICITY NONHISPANIC 10/03/2020 12:38 PM SEMICONDUCTOR WAFERS ETCH OPERATOR [facility] SOURCE (QST) NASOPHARYNGEAL SWAB 10/03/2020 12:38 PM SEMICONDUCTOR WAFERS ETCH OPERATOR [facility] NASOPHARYNGEAL SWAB / Unknown 10/03/2020 10:35 AM SEMICONDUCTOR WAFERS ETCH OPERATOR us Kalpesh Ortiz MD MICROBIOLOGY - GENERAL DEVIN LAZO Final Result [facility] [address] [place] [address], [facility] [address] [place] [address], documented in this encounter Visit Diagnoses Diagnosis History of colon cancer- Primary Personal history of malignant neoplasm of large intestine documented in this encounter Additional Health Concerns Infection Onset Date Last Indicated Resolved Time COVID-19 Rule Out 10/03/2020 10/03/2020 10/04/2020 11:32 AM SEMICONDUCTOR WAFERS ETCH OPERATOR documented as of this encounter Care Teams Park Manager Relationship Specialty Start Date End Date Grayson Karimi MD [address] [address] PCP - General INTERNAL MEDICINE 10/06/20 documented as of this encounter
--- OUTSIDE RECORDS SUMMARY | 2025-03-23 13:49 | XMS_ITS | Clinical Summary ---
Author Organization [facility] Address [facility] [place] [address] Care Team Providers Care Hand Shaper Name Role Phone Grayson Karimi MD Primary Care Provider [phone] Allergies Active Allergy Reactions Criticality Noted Date Comments Sulfa Antibiotics Anaphylaxis High 09/28/2020 Medications losartan 50 MG tablet Take 50 mg by mouth daily. Active PARoxetine 20 MG tablet Take 20 mg by mouth every morning. Active Cholecalciferol (VITAMIN D3) 50 MCG (2000 UT) Tab Take 25 mg by mouth daily. Active Multiple Vitamins-Mineral s (MULTIVITAMIN ADULT OR) Take 1 tablet by mouth daily. Active Social History Tobacco Use Types Packs/Day Years [...] Binge Drinking Not on file 09/06 Comments No Sex and Gender Information Value Date Recorded Sex Assigned at Not on file Legal Sex Female 7:10 PM CDT Gender Identity Not on file Sexual Orientation Not on file Last Filed Vital Signs Vital Sign Reading Time Taken Comments Blood Pressure 137/72 10/06/2020 9:04 AM APPLE CHECKER Pulse 65 10/06/2020 9:04 AM APPLE CHECKER Temperature 36.4 C (97.5 F) 10/06/2020 9:00 AM APPLE CHECKER Respiratory Rate 18 10/06/2020 9:04 AM APPLE CHECKER Oxygen Saturation 100% 10/06/2020 9:04 AM APPLE CHECKER Inhaled Oxygen Concentration - - Weight 86.2 kg (190 lb) 09/28/2020 8:24 AM APPLE CHECKER Height 172.7 cm (5' 8 ) 09/28/2020 8:24 AM APPLE CHECKER Body Mass Index 28.89 09/28/2020 8:24 AM APPLE CHECKER Plan of Treatment Health Maintenance Due Date Last Done Comments Hepatitis C 1971 DTaP, Tdap and Td Vaccines (1 - Tdap) 1972 Mammogram Screening 1993 Zoster Vaccines (1 of 2) 2003 Annual Medicare Wellness Visit 2018 Dexa Scan (General) 2018 COVID-19 Vaccine ( season) 2024 11/19/2021, 02/11/2021, 02/11/2021, Additional history exists RSV Immunization or 60+ Years (1 - 1-dose 75+ series) 2028 Colorectal Cancer Screening Colonoscopy (10 Years) 10/06/2030 10/06/2020 Pneumococcal Vaccine: 50+ Years Completed 03/08/2023, 01/13/2020 Meningococcal B Vaccine Aged Out No l onger eligible based on patient's age to complete this topic Meningococcal Vaccine Aged Out No regina josefina eligible based on patient's age to complete this topic RSV Immunizations Under 20 Months Aged Out No longer eligible based on patient's age to complete this topic Insurance [facility] Care Teams Hand Shaper Relationship Specialty Start Date End Date Grayson Karimi MD [address] [address] PCP - General INTERNAL MEDICINE 10/06/20
--- OUTSIDE RECORDS SUMMARY | 2025-03-23 13:49 | XMS_ITS | Referral Summary ---
Author Organization [facility] Address [address] [place] [address] Phone Care Team Providers Care Pulmonology Physician Name Role Phone Grayson Karimi MD Primary Care Provider Kalpesh Ortiz MD Unavailable [phone] Mona Constantino NP Unavailable [phone] Allergies Active Allergy Reactions Criticality Noted Date Comments Sulfa (Sulfonamide Antibiotics) Anaphylaxis High 09/28/2020 Sulfamethoxazole-Trimetho prim Rash,Shortness of breath,Swelling High Medications multivitamin capsule Take 1 capsule by mouth daily. Active losartan (COZAAR) 50 mg tablet Take 50 mg by mouth daily 0 Active cholecalciferol (VITAMIN D-3) 1,000 unit capsule Take 1,000 Units by mouth daily Active PARoxetine (PAXIL) 20 mg tablet paroxetine HCl 20 mg tablet 0 Active Active Problems Problem Noted Date Diagnosed Date Osteoarthritis 06/14/2021 History of depression 06/14/2021 Essential hypertension 07/17/2019 Personal history of breast cancer 01/16/2011 Cancer Staging:Clinical stage from 10/25/2010:Stage IA(T1c, N0, M0) - Signed by Rafael Moran MD on 05/28/2018 Personal history of rectal cancer 09/04/2000 Resolved Problems Problem Noted Date Diagnosed Date Resolved Date Acute febrile neutrophilic dermatosis 06/06/2021 06/14/2021 Encounter for immunization 06/06/2021 0 06/14/2021 Personal history of other di seases of the circulatory system 06/06/2021 06/14/2021 Immunizations Immunization Administration Dates Next Due Influenza, Trivalent, High D ose, Split, Preservative Free, Intramuscular 01/13/2020 Influenza, Unspecified 08/28/2016,04/19/2015, Moderna SARS-CoV-2 Monovalen t Vaccination (12+ YRS) 02/11/2021,01/14/2021 Pneumococcal Conjugate PCV 13 01/13/2020 Social History Tobacco Use Types Packs/Day Years Used Date Smoking Tobacco: Never Smokeless Tobacco: Never Alcohol Use Standard Drinks/Week Comments No 0 (1 standard drink = 0.6 oz pur e alcohol) Personal Safety Answer Date Recorded Getting School Help Needed Not on file 12/30 Comments Unknown Sex and Gender Information Value Date Recorded Sex Assigned at Not on file Legal Sex Female 2:31 AM FULFILLMENT COORDINATOR Gender Identity Not on file Sexual Orientation Not on file Last Filed Vital Signs Vital Sign Reading Time Taken Comments Blood Pressure 150/80 06/13/2022 2:00 PM CDT Pulse 72 06/13/2022 2:00 PM CDT Temperature 36.9 C (98.4 F) 06/13/2022 2:00 PM CDT Respiratory Rate 17 06/13/2022 2:00 PM CDT Oxygen Saturation 97% 06/13/2022 2:00 PM CDT Inhaled Oxygen Concentration - - Weight 83.5 kg (184 lb) 06/13/2022 2:00 PM CDT Height 170.2 cm (5' 7 ) 06/13/2022 2:00 PM CDT Body Mass Index 28.82 06/13/2022 2:00 PM CDT Plan of Treatment Not on file Insurance [facility] H[facility] REF [facility] Address: [address] [address] [place] [address] [facility] RE[facility] Address: [facility] [address] [place] [address] Care Teams Pulmonology Physician Relationship Specialty Start Date End Date Grayson Karimi MD [address] [facility] [address] [address] PCP - General Internal Medicine 05/28/18 Kalpesh Ortiz MD [address]43 [facility] [address] [facility] [address] [place] [address] Gastroenterology 06/08/20 Mona Constantino NP [address] [facility] [address] [place] [address] Nurse Practitioner Medical Oncology 06/14/21
--- OUTSIDE RECORDS SUMMARY | 2025-03-23 13:49 | XMS_ITS | Continuity of Care Document ---
Author Organization [facility] Address [address] [place] [address] Phone Care Team Providers Care Simulation Technician Name Role Phone Artur Sawyer DO Unavailable Unavailable Advance Directives Directive Yes / No Effective Date File Name No Information Encounters Encounter Description Practice Location Reason(s) For Visit Diagnoses Date Provider Providers [facility]ied [facility] [id number] [place] [address] [address], [place], [place], [id number], [place] tel:[phone] [facility] No Information Silverio Sheth. [address] [place], [address], [place]. tel: [phone] Family History Family Member Type Diagnosis Age At Onset No Information Payers Payer name Insurance type Covered alliance party ID Authoriza tion(s) No Information Social History Type Description Quantity Date Captured Comments Sex Female Smoking Status No Information Chief Complaint And Reason For Visit No Information Reason For Referral Reason For Referral No Information History Of Present Illness Encounter Date Complaint History Of Prese nt Illness No Information Functional Status Date Functional Assessmen t No Information Instructions Date Instruction Additional Infor mation No Information Assessments Type Assessment Date No Information Patient Care Teams Name Effective Dates (start - stop) Status Members No Information
--- OUTSIDE RECORDS SUMMARY | 2025-03-23 13:49 | XMS_ITS | Clinical Summary ---
Author Organization [facility] Address [address] [place] [address] Phone Care Team Providers Care Vocational Rehabilitation Supervisor Name Role Phone Grayson Karimi MD Primary Care Provider Kalpesh Ortiz MD Unavailable [phone] Mona Constantino NP Unavailable [phone] Allergies Active Allergy Reactions Criticality Noted Date [...] YRS) 02/11/2021,01/14/2021 Pneumococcal Conjugate PCV 13 01/13/2020 Surgical History Surgery Date Site/Laterality Comments SECTION 1988, 1991 APPENDECTOMY 11/05/1979 - 11/04/1980 BREAST BIOPSY 11/05/2010 - 11/04/2011 Right BREAST LUMPECTOMY 11/05/2010 - 11/04/2011 Right COLON SURGERY 11/05/1999 - 11/04/2000 COLONOSCOPY 10/06/2020 repeat in 5 years ILEOSTOMY CLOSURE 07/06/2001 - 08/04/2001 TOTAL ABDOMINAL HYSTERECTOMY W/ BILATERAL SALPINGOOPHORECTOMY 11/05/1999 - 11/04/2000 KNEE CARTILAGE SURGERY 09/05/2009 - 10/04/2009 REPLACEMENT TOTAL KNEE 06/14/2021 Right Medical History Medical History Date Comments Personal history of other diseases of the circul atory system 06/06/2021 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.] 06/13/2022 2:00 PM CDT Plan of Treatment Health Maintenance Due Date Last Done Comments Breast Cancer Screening-Mammogram 1955 Colon Cancer Screening-Colonoscopy 1955 Depression Screening 1955 Fall Risk Assessment 1955 Hepatitis C Screening 1955 DTaP/Tdap/Td Vaccine (1 - Tdap) 1964 Hepatitis B Screening 1971 Zoster Vaccine (1 of 2) 2003 Well Visit 65+ 2018 Covid-19 Vaccine (4 - 2023-2 5 season) 2024 11/19/2021, 02/11/2021, 01/14/2021 Influenza Vaccine (#1) 2024 , 08/28/2016, 04/19/2015, Additional history exists Osteoporosis Screening-Bone Density Scan 09/19/2024 09/19/2022 Pneumococcal vaccine 65+ Completed 03/08/2023, 01/03 Insurance [facility] HMO REF [facility] Address: [address] [address] [place] [address] [facility] HMO REF [facility] Address: [address] [address] [place] [address] Care Teams Vocational Rehabilitation Supervisor Relationship Specialty Start Date End Date Grayson Karimi MD 2043 [facility] [address] [address] PCP - General Internal Medicine 05/28/18 Kalpesh Ortiz MD [address] [address] Gastroenterology 06/08/20 Mona Constantino NP 2043 [facility] [address] [address] Nurse Practitioner Medical Oncology 06/14/21
== END 2025-03-23 13:42 | disposition home or self-care (01) ==
LOC: ANHIMG 13:44
PROVIDERS: PCP Internal Medicine; Visit Provider Nurse Practitioner
DX: Z78.0 Asymptomatic menopausal state (principal); M85.88 Other specified disorders of bone density and structure, other site; M85.852 Other specified disorders of bone density and structure, left thigh; M85.851 Other specified disorders of bone density and structure, right thigh
CPT/HCPCS: 77080

== ENCOUNTER 2025-05-11 08:44 | Outpatient (CLI) | payer MEDICARE, SELFPAY ==
--- NOTE | ~2025-05-11 | MM_ITS ---
EXAMINATION: MM screening kenyetta BI w meche HISTORY: Screening TECHNIQUE: Craniocaudal and mediolateral oblique 3-D tomosynthesis images were obtained and synthetic 2-D images were generated. CAD analysis was submitted and interpreted. COMPARISON: Comparison to multiple prior studies sequentially, with oldest reviewed study dated 05/2019. BREAST PARENCHYMAL COMPOSITION: Not dense: There are scattered areas of fibroglandular density. FINDINGS: Stable architectural distortion of the right breast, consistent with previous lumpectomy. T here is no evidence of suspicious mass, calcification, or architectural distortion to suggest maligna ncy in either breast. There has been no suspicious interval change. IMPRESSION: 1. No mammographic evidence of malignancy. 2. Recommend routine screening mammography in one year. BI-RADS Category 2: Benign finding(s). Reviewed, dictated and finalized at location A.
--- OUTSIDE RECORDS SUMMARY | 2025-05-11 08:59 | XMS_ITS | Referral Summary ---
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 Gender Identity Not on file Sexual Orientation [...] 2:00 PM CDT Height 170.2 cm (5' 7) 06/13/2022 2:00 PM CDT Body Mass Index 28.82 06/13/2022 2:00 PM CDT Plan of Treatment Not on file Insurance [facility] HMO REF [facility] HMO REF Care Teams Farm Reporter Relationship Specialty Start Date End Date Grayson Karimi MD 2043 [facility] [address] [address] PCP - General Internal Medicine 05/28/18 Kalpesh Ortiz MD 2043 [facility] 23 [facility] [address] [place] [address] Gastroenterology 06/08/20 Mona Constantino NP 2043 [facility] 23 [address] [place] [address] Nurse Practitioner Medical Oncology 06/14/21
--- OUTSIDE RECORDS SUMMARY | 2025-05-11 08:59 | XMS_ITS | Clinical Summary ---
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 Gender Identity Not on file Sexual Orientation [...] 2023-2 5 season) 2024 11/19/2021, 02/11/2021, 01/14/2021 Osteoporosis Screening-Bone Density Scan 09/19/2024 09/19/2022 Influenza Vaccine (Season Ended) 2025 01/13/2020, 08/28/2016, 04/19/2015, Additional history exists Pneumococcal vaccine 65+ Completed 03/08/2023, 01/03 Insurance [facility] HMO REF [facility] HMO REF Care Teams Tactical Debriefer Officer Relationship Specialty Start Date End Date Grayson Karimi MD [address] [address] PCP - General Internal Medicine 05/28/18 Kalpesh Ortiz MD [address] [address] Gastroenterology 06/08/20 Mona Constantino NP [address] [address] Nurse Practitioner Medical Oncology 06/14/21
--- OUTSIDE RECORDS SUMMARY | 2025-05-11 08:59 | XMS_ITS | Continuity of Care Document ---
Author Organization [facility] Address [address] [place] [address] Phone Care Team Providers Care Pharmacy Grad Intern Name Role Phone Artur Sawyer DO Unavailable Unavailable Advance Directives Directive Yes / No Effective Date File Name No Information Encounters Encounter Description Practice Location Reason(s) For Visit Diagnoses Date Provider Providers Copied on Encounter [facility] [id number] [place] [address] [address], [place], [place], [id number], [place] tel:[phone] [facility] No Information Silverio [address]th. [address] [place], [address], [place]. tel: [phone] Family History Family Member Type Diagnosis Age At Onset No Information Payers Payer name Insurance type Covered libertarian ID Authoriza tion(s) No Information Social History [...]
== END 2025-05-11 08:45 | disposition home or self-care (01) ==
PROVIDERS: PCP Internal Medicine; Visit Provider Nurse Practitioner
DX: Z12.31 Encounter for screening mammogram for malignant neoplasm of breast (principal)
CPT/HCPCS: 77063; 77067

== ENCOUNTER 2025-11-02 01:45 | Day surgery (SDC) | payer MEDICARE, SELFPAY ==
[2025-10-13 10:21] VITALS: BMI 27.3
--- OUTSIDE RECORDS SUMMARY | 2025-11-02 01:48 | XMS_ITS | Clinical Summary ---
Author Organization [facility] Address [facility] [place] [address] Care Team Providers Care Outreach Director Name Role Phone Grayson Karimi MD Primary Care Provider [phone] Allergies Active Allergy Reactions Criticality Noted Date [...] Comments Blood Pressure 137/72 10/06/2020 9:04 AM GARBAGE PICK UP MAN Pulse 65 10/06/2020 9:04 AM GARBAGE PICK UP MAN Temperature 36.4 C (97.5 F) 10/06/2020 9:00 AM GARBAGE PICK UP MAN Respiratory Rate 18 10/06/2020 9:04 AM GARBAGE PICK UP MAN Oxygen Saturation 100% 10/06/2020 9:04 AM GARBAGE PICK UP MAN Inhaled Oxygen Concentration - - Weight 86.2 kg (190 lb) 09/28/2020 8:24 AM GARBAGE PICK UP MAN Height 172.7 cm (5' 8) 09/28/2020 8:24 AM GARBAGE PICK UP MAN Body Mass Index 28.89 09/28/2020 8:24 AM GARBAGE PICK UP MAN Plan of Treatment Health Maintenance Due Date Last Done Comments Hepatitis C 1971 DTaP, Tdap and Td Vaccines (1 - Tdap) 1972 Mammogram Screening 1993 Zoster Vaccines (1 of 2) 2003 Annual Medicare Wellness Visit 2018 Dexa Scan (General) 2018 COVID-19 Vaccine ( season) 2025 11/19/2021, 02/11/2021, 02/11/2021, Additional history exists Influenza Adult (#1) 2025 01/13/2020, 08/31/2016, 08/28/2016, Additional history exists RSV Immunization or 60+ Years (1 - 1-dose 75+ series) 2028 Colorectal Cancer Screening Colonoscopy (10 Years) 10/06/2030 10/06/2020 Pneumococcal Vaccine: 50+ Years Completed 03/08/2023, 01/13/2020 Hepatitis A Vaccines Aged Out No long er eligible based on patient's age to complete this topic Meningococcal B Vaccine Aged Out No l onger eligible based on patient's age to complete this topic Meningococcal Vaccine Aged Out No regina josefina eligible based on patient's age to complete this topic RSV Immunizations Under 20 Months Aged Out No longer eligible based on patient's age to complete this topic Insurance [facility] MEDICARE Care Teams Outreach Director Relationship Specialty Start Date End Date Grayson Karimi MD [address] [address] PCP - General INTERNAL MEDICINE 10/06/20
--- OUTSIDE RECORDS SUMMARY | 2025-11-02 01:48 | XMS_ITS | Encounter Summary ---
Author Organization [facility] Address [facility] [place] [address] Care Team Providers Care Ice Carver Name Role Phone Grayson Karimi MD Primary Care Provider [phone] Encounter Details Date Type Department Care Team (Late st Contact Info) Description 10/03/2020 Prep for Procedure [facility] [place], [place] [id number] Kalpesh Ortiz MD [address] [facility] [address] [place], [place] [id number] Social History Tobacco Use Types Packs/Day Years [...] COVID-19? No / Unsure 10/06/2020 6:59 AM MISSILE TECHNICIAN documented as of this encounter Plan of Treatment Not on file documented as of this encounter Results * PRE-SURGICAL/PRE-PROCEDURE CORONAVIRUS (COVID 19) (10/03/2020 10:35 AM MISSILE TECHNICIAN) CORONAVIRUS SARS COV 2 PCR (RESP) NOT DETECTED NOT DETECTED 10/04/2020 11:32 AM MISSILE TECHNICIAN [facility] Comment: A Not Detected (negative) test result [...] providers and patients using the following websites: https://www.[employer].State/home/Covid-19/HCP/[facility]/fact- sheet.html https://www.[employer].State/home/Covid-19/Patients/ [facility]/fact-sheet.html This test has been authorized by the FDA under an Emergency Use Authorization (EUA) for use by authorized laboratories. Due to the current public health emergency, [facility] is receiving a high volume of samples [...] about COVID-19 can be found at the [facility] website: www.[employer].State/Covid19. Test performed at [facility] [place] [address] [place] [address] Director: AMAIRANI AMAYA DO,MPH FIRST TEST YES 10/03/2020 12:38 PM MISSILE TECHNICIAN [facility] EMPLOYED IN HEALTHCARE NO 10/03/2020 12:38 PM MISSILE TECHNICIAN [facility] SYMPTOMATIC DEFINED BY CDC NO 10/03/2020 12:38 PM MISSILE TECHNICIAN [facility] DATE OF SYMPTOM ONSET NO 10/03/2020 12:49 PM MISSILE TECHNICIAN [facility] HOSPITALIZATION STATUS NO 10/03/2020 12:38 PM MISSILE TECHNICIAN [facility] PATIENT IN ICU NO 10/03/2020 12:38 PM MISSILE TECHNICIAN [facility] RESIDENT OF [facility] UNKNOWN 10/03/2020 12:38 PM MISSILE TECHNICIAN [facility] NOT 10/03/2020 12:49 PM MISSILE TECHNICIAN [facility] PATIENT'S RACE WHITE OR 10/03/2020 12:38 PM MISSILE TECHNICIAN [facility] ETHNICITY NONHISPANIC 10/03/2020 12:38 PM MISSILE TECHNICIAN [facility] SOURCE (QST) NASOPHARYNGEAL SWAB 10/03/2020 12:38 PM MISSILE TECHNICIAN [facility] NASOPHARYNGEAL SWAB / Unknown 10/03/2020 10:35 AM MISSILE TECHNICIAN us Kalpesh Ortiz MD MICROBIOLOGY - GENERAL DEVIN LAZO Final Result [facility] [address] [place] [address], [facility] [address] [place] [address], documented in this encounter Visit Diagnoses Diagnosis History of colon cancer- Primary Personal history of malignant neoplasm of large intestine documented in this encounter Additional Health Concerns Infection Onset Date Last Indicated Resolved Time COVID-19 Rule Out 10/03/2020 10/03/2020 10/04/2020 11:32 AM MISSILE TECHNICIAN documented as of this encounter Care Teams Ice Carver Relationship Specialty Start Date End Date Grayson Karimi MD [address] [address] PCP - General INTERNAL MEDICINE 10/06/20 documented as of this encounter
--- OUTSIDE RECORDS SUMMARY | 2025-11-02 01:48 | XMS_ITS | Clinical Summary ---
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 Gender Identity Not on file Sexual Orientation [...] Plan of Treatment Not on file Insurance [facility] HMO REF [facility] Address: [address] [address] [facility] HMO REF [facility] Address: [facility] [address] [place] [address] Care Teams Lidar Technician Relationship Specialty Start Date End Date Grayson Karimi MD [address] [address] PCP - General Internal Medicine 05/28/18 Kalpesh Ortiz MD [address] [place] [address] Gastroenterology 06/08/20 Mona Constantino NP [address] [place] [address] Nurse Practitioner Medical Oncology 06/14/21
[2025-11-02 08:59] VITALS: BP 150/73; PULSE 90; RESP 20; TEMP 36.1; O2SAT 100
--- NOTE | 2025-11-02 09:28 | WPDANESEPPF ---
Anes - Initial Pre Proc Eval Procedure: Operation Date: 11/02/25 10:00 Proposed Procedures p Screening Colonoscopy - Bridger Lloyd MD Date/Time: 11/02/25 09:28 Surgeon: Bridger Lloyd MD Pre Op Diagnosis: Personal history of other malignant neoplasm of la Patient Data Age: 69 Gender: F Height: 1.73 m Weight: 80.5 kg Last Vital Signs Temp 36.1 C L 11/02/25 08:59 Pulse 90 11/02/25 08:59 Resp 20 11/02/25 08:59 BP 150/73 H 11/02/25 08:59 Pulse Ox 100 11/02/25 08:59 O2 Del Method Room Air 11/02/25 08:59 Allergies Allergy/AdvReac Type Severity Reaction Status Date / Time Sulfa (Sulfonamide Allergy Severe RENAL, Verified 11/02/25 08:57 Antibiotics) HEART & RESP FAILURE, HIVES trimethoprim Allergy Severe RENAL,HEART Verified 11/02/25 08:57 & RESP FAILURE, HIVES Home Medications ?Medication ?Instructions ?Recorded ?Confirmed ?Type cholecalciferol (vitamin D3) 25 25 mcg PO DAILY 05/31/21 11/02/25 History mcg (1,000 unit) capsule losartan 50 mg tablet 50 mg PO QAM 05/31/21 11/02/25 History paroxetine HCl 20 mg tablet 20 mg PO QAM 05/31/21 11/02/25 History pediatric multivitamin 1 tablet PO DAILY 05/31/21 11/02/25 History Patient hx anesthesia problems: none Family hx anesthesia problems: none Results Review: All pre-operative results and documents have been reviewed as part of the pre-operative evaluation. [facility] Past Medical History Medical History Depression Osteoarthritis, knee Sweet syndrome History of breast cancer Lumpectomy with XRT and chemo in 2009 PONV (postoperative nausea and vomiting) History of rectal cancer s/p XRT, surgery and chemo Hypertension Atrial fibrillation resolved - one occurrence 2009 following sepsis s/p breast sx Surgical History Surgical History History of total right knee replacement (TKR) Hx of knee surgery right meniscus 2009 History of partial colectomy in 1999; partial colon resection with ostomy that was reversed 9 months later History of History of hysterectomy NEPTALI/BSO. During the colon resection. History of appendectomy Family History Family History Father Family history of lung cancer Mother Family history of heart disease in male family member before age 55 Family history of lupus erythematosus Family history of cardiovascular disease Sibling Family history of cardiovascular disease Sibling Family history of cardiovascular disease Sibling Family history of cardiovascular disease Social History Social History Smoking status: Never smoker Alcohol intake: never Substance use: never Living arrangements: with family Additional living arrangements comments: HUSB Spiritual care concerns: No Anes - Eval Final PreProcedure Day of Procedure 11/02/25 09:28 Patient weight: overweight Heart: regular rate and rhythm Lungs: clear to auscultation Airway: Mallampati scale class II Neurological: alert and oriented Last oral intake: >/= 8 hours ASA classification: III Emergent: no Anesthetic plan: proceed Anesthesia type and monitoring: general GIVS and standard monitoring Results Review: All pre-operative results and documents have been reviewed as part of the pre-operative evaluation. Informed Consent: The patient's anesthetic plan and its attendant risks and benefits were discussed with the patient/family/POA. Questions were solicited and answers provided to the satisfaction of the patient/family/POA.
--- NOTE | 2025-11-02 09:31 | PM.HPGS ---
History of Present Illness History of Present Illness Consent: Risks, benefits, and alternatives have been discussed and questions answered. Patient agrees to proceed with procedure. Chief complaint: Personal history of other malignant neoplasm of la Narrative: Beth Hansen is a 69 year old female Review of Systems Review of Systems: All systems reviewed & are unremarkable except as noted in HPI and below PMFSH Past Medical History Medical History (Updated 11/02/25 @ 09:34 by Shana Yanez MD) Colon cancer Depression Osteoarthritis, knee Sweet syndrome History of breast cancer Lumpectomy with XRT and chemo in 2009 PONV (postoperative nausea and vomiting) History of rectal cancer s/p XRT, surgery and chemo Hypertension Atrial fibrillation resolved - one occurrence 2009 following sepsis s/p breast sx Surgical History Surgical History History of total right knee replacement (TKR) Hx of knee surgery right meniscus 2009 History of partial colectomy in 1999; partial colon resection with ostomy that was reversed 9 months later History of History of hysterectomy NEPTALI/BSO. During the colon resection. History of appendectomy Family History Family History Father Family history of lung cancer Mother Family history of heart disease in male family member before age 55 Family history of lupus erythematosus Family history of cardiovascular disease Sibling Family history of cardiovascular disease Sibling Family history of cardiovascular disease Sibling Family history of cardiovascular disease Social History Social History Smoking status: Never smoker Alcohol intake: never Substance use: never Living arrangements: with family Additional living arrangements comments: [facility] Spiritual care concerns: No Meds Home Medications and Allergies Home Medications ?Medication ?Instructions ?Recorded ?Confirmed ?Type cholecalciferol (vitamin D3) 25 25 mcg PO DAILY 05/31/21 11/02/25 History mcg (1,000 unit) capsule losartan 50 mg tablet 50 mg PO QAM 05/31/21 11/02/25 History paroxetine HCl 20 mg tablet 20 mg PO QAM 05/31/21 11/02/25 History pediatric multivitamin 1 tablet PO DAILY 05/31/21 11/02/25 History Allergies Allergy/AdvReac Type Severity Reaction Status Date / Time Sulfa (Sulfonamide Allergy Severe RENAL, Verified 11/02/25 08:57 Antibiotics) HEART & RESP FAILURE, HIVES trimethoprim Allergy Severe RENAL,HEART Verified 11/02/25 08:57 & RESP FAILURE, HIVES Vital Signs Vital Signs - 24 hr 11/02/25 08:59 Temperature 97 F L Pulse Rate 90 Respiratory Rate 20 Blood Pressure 150/73 H Pulse Oximetry 100 Oxygen Delivery Room Air Assessment and Plan Assessment and plan (1) Screening for colon cancer: Code(s): Z12.11 - Encounter for screening for malignant neoplasm of colon Status: Acute Plan 69-year-old female with history of colon cancer status post surgery about 20 years ago. Patient is here for surveillance colonoscopy.
[2025-11-02] MEDS: LACTATED RINGERS 1,000 ML 150 ML IV CONT (09:40)
--- NOTE | 2025-11-02 09:45 | S_PTH ---
PATIENT: Beth Hansen LOC: [facility]#:[id number] AGE/SX: 69/F ROOM: RE11/02/[address]: Bridger Lloyd MD : 1955 BED: DIS: 11/02/2025 SPEC #: [id number] RECD: 11/02/25 10:07 STATUS: EVERETTE RERanjith #: [id number] MAYLIN: 11/02/25 09:[address]: Shana Yanez DEPT: [facility] Surgical RECD BY: Raisa Romo ENTERED: 11/02/25 10:07 SP TYPE: Surgical OTHR DR: Grayson Karimi, MD Bridger Lloyd MD Tissues: A - Rectal Polyp Procedures: Hematoxylin and Eosin Stain Gross and Microscopic Level 4
[2025-11-02 09:50] VITALS: BP 98/53; PULSE 74; RESP 18; O2SAT 100
[2025-11-02 10:00] VITALS: BP 103/71; PULSE 70; RESP 16; O2SAT 100
[2025-11-02 10:10] VITALS: BP 118/59; PULSE 64; RESP 17; O2SAT 99
== END 2025-11-02 10:16 | disposition home or self-care (01) ==
PROVIDERS: Internal Medicine Gastroenterology; PCP Internal Medicine; Referring Provider Internal Medicine; Visit Provider Internal Medicine Gastroenterology
PROC: 0DJD8ZZ Inspection of Lower Intestinal Tract, Via Natural or Artificial Opening Endoscopic (ICD-10-PCS; CPT 45378; principal; 2025-11-02 10:00)
DX: Z08 Encounter for follow-up examination after completed treatment for malignant neoplasm (principal); D12.8 Benign neoplasm of rectum; K59.00 Constipation, unspecified; Z85.038 Personal history of other malignant neoplasm of large intestine; Z98.0 Intestinal bypass and anastomosis status; Z90.49 Acquired absence of other specified parts of digestive tract
CPT/HCPCS: 45380; 88305; J2003; J2704; J7120